=== PATIENT | male | born 1995 | race Hispanic/Latino ===

== ENCOUNTER 2017-03-02 20:38 | Emergency (ER) | payer BC, MEDICAID ==
--- NOTE | 2017-03-02 21:04 | ERNOTE ---
Lower Extremity HPI - General Lower Extremities Pain: ankle: right Time Seen by Provider: 03/02/17 20:53 Source: patient Exam Limitations: no limitations - Immun/Allergies/Home Medications Immunizations: IMMUNIZATION HX Immunizations Up to Date Yes History of Influenza Vaccine No Hx Pneumococcal Vaccination No Allergies/Adverse Reactions: Allergies Allergy/AdvReac Type Severity Reaction Status Date / Time No Known Allergies Allergy Verified 11/25/15 10:43 Home Medications: HOME MEDICATIONS Lisdexamfetamine Dimesylate [Vyvanse] 30 mg PO DAILY 12/12/13 [Last Taken 09:00] Sertraline HCl [Zoloft] 50 mg PO DAILY 05/19/14 [Last Taken Unknown] - History of Present Illness Narrative: twisted his ankle in inversion one week ago. Had difficulty bearing weight for the first few days. Has been able to bear weight but continues to have swelling and pain with any inversion or palpation of the lateral maleolus Occurred: last week Location of Incident: park - while [place] Method of Injury: Reports: twisted Reason for Fall: Reports: slipped Modifying Factors - (Improves): Reports: cold therapy, immobilization Modifying Factors - (Worsens): Reports: movement Associated Symptoms: Reports: unable to bear weight - initially Review of Systems - Review of Systems Constitutional: Absent: recent illness EYE: Present: no symptoms reported ENT: Present: no symptoms reported Respiratory: Present: no symptoms reported Cardiology: Present: no symptoms reported Gastrointestinal/Abdominal: Present: no symptoms reported Genitourinary: Present: no symptoms reported Musculoskeletal: Present: See HPI, joint swelling. Absent: back pain Skin: Present: no symptoms reported Neurological: Absent: numbness, tingling Endocrine: Present: no symptoms reported Hematologic/Lymphatic: Present: no symptoms reported Psych: Present: no symptoms reported - Patient's Past Medical History Patient History - Medical: ADHD, Anxiety, Depression Patient History - Cardiac/Respiratory: No pertinent hx Patient History - Cancer: No Hx of Cancer Patient History - Surgical Procedures: Colonoscopy, EGD, Ear Tubes, T & A, Other Patient History - Other: None - Social History Living Situations: home Abuse History: No History of abuse Psych History: Hx of Anxiety, Hx of Depression Does anyone smoke in the home?: No Smoking Status: Never smoker Alcohol Use: none Drug Use: none - Immunizations Immunizations Up to Date: Yes Hx Pneumococcal Vaccination: No History of Influenza Vaccine: No Physical Exam - Physical Exam General Appearance: Present: wd/wn, alert, no apparent distress Head Exam: Present: normal inspection, no evidence of injury Neck: Present: normal inspection, supple Respiratory: Present: no respiratory distress, no accessory muscle use Back Exam: Present: normal range of motion Extremity Exam: Present: bony tenderness - posterior maleolus, joint swelling - mild lateral ankle Neurological Exam: Present: alert, oriented, normal mood/affect, no motor/ sensory deficits Skin Exam: Present: warm/dry ED Progress - Vital Signs Vital Signs: Vital Signs 03/02/17 20:43 Temperature 36.5 C Pulse Rate 63 Respiratory 16 Rate Blood Pressure 129/88 O2 Sat by Pulse 99 Oximetry - X-Ray X-Ray #1 X-Ray: ankle Interpretation: Reviewed by me X-ray Comments: FINDINGS: There is no evidence of acute fracture or dislocation. The ankle mortise and syndesmosis are normal. There is mild soft tissue swelling overlying the lateral malleolus. IMPRESSION: Mild soft tissue swelling overlying the lateral malleolus with no acute fracture or dislocation. Electronically signed by Marielos Hollis D.O.. - Progress/Reassessment Chief Complaint: Lower Extremity Pain/ Injury Departure Clinical Impression: Right ankle sprain Qualifiers: Encounter type: initial encounter Involved ligament of ankle: deltoid ligament Qualified Code(s): S93.421A - Sprain of deltoid ligament of right ankle, initial encounter - Departure Disposition: Home self-care Condition: Good Instructions: Ankle Sprain Additional Instructions: may take ibuprofen 600 mg up to 3 times a day OR aleve 2 tabs twice a day as needed for pain. Referrals: Aftab Navarro MD [Primary Care Provider] -
[2017-03-02 22:53] VITALS: BP 131/81
== END 2017-03-02 22:52 | disposition home or self-care (01) ==
LOC: ER 20:38
DX: S93.421A Sprain of deltoid ligament of right ankle, initial encounter (principal); W01.0XXA Fall on same level from slipping, tripping and stumbling without subsequent striking against object, initial encounter; Y93.51 Activity, roller skating (inline) and skateboarding; Y92.830 Public park as the place of occurrence of the external cause; F90.9 Attention-deficit hyperactivity disorder, unspecified type; F41.8 Other specified anxiety disorders

== ENCOUNTER 2017-04-07 19:17 | Emergency (ER) | payer BC, MEDICAID ==
[2017-04-07] MEDS ORDERED: ORPHENADRINE CITRATE 30 MG/ML VIAL ONE (19:44)
[2017-04-07] MEDS ORDERED: ORPHENADRINE CITRATE 30 MG/ML VIAL IM ONE (19:45)
[2017-04-07] MEDS ORDERED: KETOROLAC TROMETHAMINE 60 MG/2 ML VIAL IM ONE ×2 (19:45)
--- NOTE | 2017-04-07 19:54 | ERNOTE ---
Back Pain ER HPI Date of Service: 04/07/17 Presenting Symptoms: hx chronic back pain Time Seen by Provider: 04/07/17 19:30 Source: patient Exam Limitations: no limitations Immunizations: IMMUNIZATION HX Immunizations Up to Date Yes History of Influenza Vaccine No Hx Pneumococcal Vaccination No Allergies/Adverse Reactions: Allergies No Known Allergies Allergy (Verified 04/07/17 19:24) Home Medications: HOME MEDICATIONS Lisdexamfetamine Dimesylate [Vyvanse] 30 mg PO DAILY 12/12/13 [Last Taken 09:00] Sertraline HCl [Zoloft] 50 mg PO DAILY 05/19/14 [Last Taken Unknown] Cyclobenzaprine HCl [Flexeril] 10 mg PO TID PRN #30 tab 04/07/17 [Last Taken Unknown] Naproxen Sodium [Aleve] 220 mg PO BID PRN 04/07/17 [Last Taken 04/07/17 18:00 4 tablets] Narrative: Pt. comes in with c/o L sided back pain from his upper back to his lower back. Pt. has a hx of L paraspinous muscle strain and has had multiple images of his back with no disease process noted. Pt. states that his L foot will occasionally have tingling and numbness. Pt. denies any SOB, CP, NVD, recent illness or injury. Pt. has never participated in PT for this injury. Review of Systems - Review of Systems Constitutional: Present: no symptoms reported. Absent: fever, chills, weakness , fatigue, malaise EYE: Present: no symptoms reported ENT: Present: no symptoms reported Respiratory: Present: no symptoms reported. Absent: shortness of breath, cough , wheezing Cardiology: Present: no symptoms reported. Absent: chest pain, palpitations, edema Gastrointestinal/Abdominal: Present: no symptoms reported. Absent: nausea, vomiting, diarrhea Genitourinary: Present: no symptoms reported Musculoskeletal: Present: back pain - L paraspinous from top to bottom Skin: Present: no symptoms reported Neurological: Present: no symptoms reported. Absent: headache, dizziness/light- headedness, numbness, tingling All Other Systems: All systems neg except as marked - Patient's Past Medical History Patient History - Medical: ADHD, Anxiety, Depression Patient History - Cardiac/Respiratory: No pertinent hx Patient History - Cancer: No Hx of Cancer Patient History - Surgical Procedures: Colonoscopy, EGD, Ear Tubes, T & A, Other , Orthopedic Patient History - Other: None - Social History Living Situations: home Abuse History: No History of abuse Psych History: Hx of Anxiety, Hx of Depression, Current tx/ever been on anti- depressants or anti-anxiety meds Does anyone smoke in the home?: No Smoking Status: Never smoker Alcohol Use: none Drug Use: none - Immunizations Immunizations Up to Date: Yes Hx Pneumococcal Vaccination: No History of Influenza Vaccine: No Physical Exam - Physical Exam General Appearance: Present: wd/wn, alert, no apparent distress Head Exam: Present: normal inspection, no evidence of injury Eye Exam: Normal inspection: bilateral Neck: Present: normal inspection, nontender, supple, full range of motion. Absent: lymphadenopathy (R), lymphadenopathy (L) Respiratory: Present: no respiratory distress, normal breath sounds, no accessory muscle use, chest nontender, lungs clear Cardiovascular/Chest: Present: regular rate, rhythm, no murmur, normal peripheral pulses Back Exam: Present: normal range of motion, no CVA tenderness, no vertebral tenderness, muscle spasm - L paraspinous tenderness from C3 to L hip Extremity Exam: Present: normal inspection, non-tender, normal range of motion, no edema Neurological Exam: Present: alert, oriented, normal mood/affect, no motor/ sensory deficits Skin Exam: Present: normal color, warm/dry. Absent: pallor, skin rash ED Progress - Date and Time Seen: Date and Time: 04/07/17 19:50 As pt. has no recent injury there is no indication for xray as this is soft tissue injury. I do feel that given pt. long standing history of back pain that he needs physical therapy and possibly an MRI on an outpatient basis. Pt. and mpm are requesting referral to back specialist. I informed them that they could call Dr Cardona in [place] who takes care of mom but that he may not see them without a referral from PCP. - Vital Signs Patient's Vital Signs:: I have reviewed the patient's vital signs. Vital Signs: Vital Signs 04/07/17 19:20 Temperature 36.2 C L Pulse Rate 69 Respiratory 18 Rate Blood Pressure 124/70 O2 Sat by Pulse 99 Oximetry - Progress/Reassessment Chief Complaint: Back Pain Progress:: Improved Departure Clinical Impression: Sciatica of left side Back pain Qualifiers: Back pain location: back pain in unspecified location Chronicity: chronic Back pain laterality: left Qualified Code(s): M54.9 - Dorsalgia, unspecified - Departure Disposition: Home self-care Condition: Good Instructions: Back Pain, Adult Additional Instructions: Please discuss follow up for PT and back MRI with your PCP and may call Dr Andreas cardona at [phone]. Referrals: Aftab Navarro MD [Primary Care Provider] - Prescriptions: Cyclobenzaprine HCl [Flexeril] 10 mg PO TID PRN #30 tab PRN Reason: MUSCLE SPASMS
[2017-04-07 20:25] VITALS: BP 119/69
== END 2017-04-07 20:20 | disposition home or self-care (01) ==
LOC: ER 19:17
DX: M54.32 Sciatica, left side (principal)

== ENCOUNTER 2017-07-15 21:08 | Emergency (ER) | payer BC, MEDICAID ==
[2017-07-15 21:36] LABS: Hematocrit 46.3 % (42.0-52.0); Mean Cell Volume 84.3 fl (78-100); Mean Corpuscular Hemoglobin 29.1 pg (27-31); Mean Corpuscular Hgb Conc 34.6 g/dl (32-36); Mean Platelet Volume 9.2 fl (6.0-9.5); Neutrophil # 7.2 K/mm3 (1.3-6.0); Neutrophil % 64.2 % (42-75.0); Platelet Count 405 K/mm3 (150-450); Red Blood Count 5.49 M/mm3 (4.7-6.0); Red Cell Distribution Width 12.5 % (11.5-14.0); White Blood Count 11.1 K/mm3 (4.0-10.5)
--- NOTE | 2017-07-15 21:47 | ERNOTE ---
Chest Pain/Cardiac HPI Chief Complaint: Chest Pain Time Seen by Provider: 07/15/17 21:39 Source: patient, family Exam Limitations: no limitations Immunizations: IMMUNIZATION HX Immunizations Up to Date Yes History of Influenza Vaccine No Hx Pneumococcal Vaccination No Allergies/Adverse Reactions: Allergies No Known Allergies Allergy (Verified 07/15/17 21:21) Home Medications: HOME MEDICATIONS Lisdexamfetamine Dimesylate [Vyvanse] 30 mg PO DAILY 12/12/13 [Last Taken 09:00] Sertraline HCl [Zoloft] 50 mg PO DAILY 05/19/14 [Last Taken Unknown] traMADol HCL [Tramadol HCl] 50 mg PO PRN PRN 07/15/17 [Last Taken Unknown] Narrative: Pt had onset of right sided chest pain that is sharp/ stabbing while he was driving over to his mom's house. Timing: other - improving Severity/Quality: moderate, severe, sharp, stabbing Location: other - right chest Chest Pain Radiation: back Activities at Onset: none Modifying Factors - Improves: Present: nothing Modifying Factors - Worsens: Present: position, movement Associated Symptoms: Absent: shortness of breath, diaphoresis, fever/chills Prior Chest Pain/Cardiac Workup: Denies: prior chest pain Review of Systems - Review of Systems Constitutional: Present: recent illness - "cold", fever, diaphoresis - upon awakening this morning that resolved EYE: Present: no symptoms reported ENT: Present: nose congestion, nasal drainage Respiratory: Present: cough Cardiology: Present: See HPI Gastrointestinal/Abdominal: Absent: nausea, vomiting, abdominal pain Genitourinary: Present: no symptoms reported Musculoskeletal: Present: back pain. Absent: neck pain Skin: Absent: rash Neurological: Present: no symptoms reported Endocrine: Present: no symptoms reported Hematologic/Lymphatic: Present: no symptoms reported Psych: Present: no symptoms reported - Patient's Past Medical History Patient History - Medical: ADHD, Anxiety, Depression Patient History - Cardiac/Respiratory: No pertinent hx Patient History - Cancer: No Hx of Cancer Patient History - Surgical Procedures: Colonoscopy, EGD, Ear Tubes, T & A, Other , Orthopedic, Urology Patient History - Other: None - Social History Living Situations: home Abuse History: No History of abuse Psych History: Hx of Anxiety, Hx of Depression, Current tx/ever been on anti- depressants or anti-anxiety meds Smoking Status: Never smoker Alcohol Use: none Drug Use: none - Immunizations Immunizations Up to Date: Yes Hx Pneumococcal Vaccination: No History of Influenza Vaccine: No Physical Exam - Physical Exam General Appearance: Present: wd/wn, alert, no apparent distress Head Exam: Present: normal inspection, no evidence of injury Eye Exam: Normal inspection: bilateral, PERRL: bilateral, EOMI: bilateral Neck: Present: normal inspection, nontender Respiratory: Present: no respiratory distress, normal breath sounds, lungs clear Cardiovascular/Chest: Present: regular rate, rhythm, no murmur, normal peripheral pulses Gastrointestinal/Abdominal: Present: normal bowel sounds, nontender, nondistended, soft Back Exam: Present: normal inspection, normal range of motion Extremity Exam: Present: normal inspection, normal range of motion, no edema Neurological Exam: Present: alert, oriented, normal mood/affect ED Progress - Results and Orders Patient's Lab Results:: I have reviewed the patient's lab results. Results and Orders: Laboratory Tests 07/15/17 07/15/17 07/15/17 21:35 21:35 22:30 WBC 11.1 H Hgb 16.0 Hct 46.3 Plt Count 405 Sodium 144 H Potassium 3.9 Chloride 105 Carbon Dioxide 26.6 BUN 9 Creatinine 0.81 Random Glucose 96 Calcium 9.7 Total Bilirubin 1.0 AST 15 ALT 24 Alkaline Phosphatase 93 Troponin I Less than 0.017 Total Protein 8.0 Albumin 4.6 Influenza Type A Ag Negative Influenza Type B Ag Negative - Vital Signs Patient's Vital Signs:: I have reviewed the patient's vital signs. Vital Signs: Vital Signs 07/15/17 21:12 Temperature 36.7 C Pulse Rate 76 Respiratory 17 Rate Blood Pressure 125/82 O2 Sat by Pulse 100 Oximetry - EKG EKG: NSR EKG read: Interp. by me - X-Ray X-Ray #1 X-Ray: chest Interpretation: Interp. by me X-ray Comments: No infiltrate or effusion. no bony abnormalities - Progress/Reassessment Chief Complaint: Chest Pain Progress:: Improved Departure Clinical Impression: Musculoskeletal chest pain - Departure Disposition: Home self-care Condition: Good Instructions: Chest Wall Pain, [id number] Additional Instructions: you may use ibuprofen 600 mg three times a day or aleve 440 mg twice a day for the next 5-7 days. See your primary care provider if not improving Referrals: Aftab Navarro MD [Primary Care Provider] -
[2017-07-15 21:56] LABS: ALT 24 U/L (19-67); AST 15 U/L (0-48); Albumin * 4.6 gm/dl (3.4-5.0); Alkaline Phosphatase * 93 U/L (50-170); Anion Gap 16.3 mmol/L (6.8-13.8); BUN/Creatinine Ratio 11.1 (9.0-21.6); Blood Urea Nitrogen 9 mg/dL (6-23); Ca. Corrected For Albumin 8.9 mg/dL (8.4-10.2); Calcium * 9.7 mg/dL (7.9-10.9); Carbon Dioxide 26.6 mmol/L (24-32.6); Chloride 105 mmol/L (97-106); Glucose * 96 mg/dL (70-110); Potassium 3.9 mmol/L (3.4-4.6); Sodium 144 mmol/L (132-142)
[2017-07-15 21:57] LABS: Troponin I Less than 0.017 ng/ml (0.00-0.10)
[2017-07-15] MEDS ORDERED: KETOROLAC TROMETHAMINE 60 MG/2 ML VIAL IM ONE ×2 (23:15→23:19)
[2017-07-16 00:23] VITALS: BP 116/78
== END 2017-07-15 23:32 | disposition home or self-care (01) ==
LOC: ER 21:08
DX: R07.89 Other chest pain; F90.9 Attention-deficit hyperactivity disorder, unspecified type; F41.9 Anxiety disorder, unspecified